=== PATIENT | male | born 1990 | race Caucasian/White ===

== ENCOUNTER 2017-11-26 11:26 | Emergency (ER) | payer OTHER ==
[2017-11-26 11:53] VITALS: BP 129/73
== END 2017-11-26 12:09 | disposition left against medical advice (07) ==
LOC: UCEAST 11:26
DX: J11.1 Influenza due to unidentified influenza virus with other respiratory manifestations (principal); Z53.21 Procedure and treatment not carried out due to patient leaving prior to being seen by health care provider